=== PATIENT | male | born 1940 | race Two or more races ===

== ENCOUNTER 2016-06-22 16:20 | Emergency (ER) | payer MEDICARE, OTHER ==
[~2016-06-22] VITALS: Wt 87.0 kg
[~2016-06-22 16:20] MED LIST: AZIT250T94 PO; BECL8.7A5 INH; BEN25 PO; CETI10CA PO; CIPR500T4 PO; DICL50TA11 PO; ERGO500014 PO; FLUT9.9S NASAL; IBUP-1542 PO; LEVO500T72 PO; METF-382 PO; OMEP20CA9 PO; ONDA4TAB8 PO; PRAM0.1224 PO; PRED20TA PO; RTPRO NEB; SIMV40TA2 PO; SODI44SP11 NASAL; UDROBAC PO; UDROBDM PO
[2016-06-22 18:30] LABS: URINE BLOOD (Dip) POC Negative (NEGATIVE)
[2016-06-22] MEDS ORDERED: ACETAMINOPHEN 325 MG TAB PO ONE (18:30)
--- NOTE | 2016-06-22 18:55 | RADRPT ---
PROCEDURE: XR Lumbar Spine. CLINICAL INDICATION: pain TECHNIQUE: 3 views of the lumbar spine were obtained. COMPARISON: No prior studies are available for comparison. FINDINGS: Alignment anatomic. There are mild degenerative changes of the lumbar spine with small osteophytes and minor endplate irregularities throughout. Slight L4-5 and L5-S1 disk space narrowing is seen. No definite fracture. No definite lytic or blastic lesion. IMPRESSION: Mild degenerative change. If disk pathology is suspected clinically, MRI could be considered. RPTAT: [facility] Cassie Lassiter Physician Date Time Electronically viewed and signed by Cassie Lassiter Physician on 06/22/2016 18:55 LE/
[2016-06-22] MEDS ORDERED: ACET-141 PO (19:24)
[2016-06-22] MEDS ORDERED: TRAM-40 PO (19:25)
--- NOTE | 2016-06-22 19:28 | ERD ---
ER Documentation Chief Complaint Date/Time DATE: 06/22/16 TIME: 19:26 Chief Complaint LOW BACK PAIN FOR 2 WKS. NO TRAUMA. NO NEURO MOTOR DEFICIT HPI 75-year-old male presents with low back pain intermittently for last 2 weeks. Started getting out of bed. He denies any fall, weakness, bowel or bladder incontinence, fevers, cough or shortness of breath. Denies any urinary complaints. Pain is in the bilateral hip or buttock area. ROS All systems reviewed and are negative except as per history of present illness. Medications Home Meds Active Scripts Tramadol Hcl* (Ultram*) 50 Mg Tablet, 50 MG PO Q6H Y for PAIN, #15 TAB Prov:SHANI FRANKLIN MD 06/22/16 Acetaminophen* (Acetaminophen*) 500 MG Extra Strength Tablet, 500 MG PO Q4H Y for PAIN AND OR ELEVATED TEMP, #20 TAB Prov:SHANI FRANKLIN MD 06/22/16 Ciprofloxacin Hcl* (Ciprofloxacin Hcl*) 500 Mg Tablet, 500 MG PO BID for 3 Days , TAB Prov:TINY WOLFE MD 11/23/15 Ondansetron Hcl* (Zofran*) 4 Mg Tablet, 4 MG PO Q6H for NAUSEA AND/OR VOMITING, #10 TAB Prov:TINY WOLFE MD 11/23/15 Guaifenesin-Codeine Phosphate* (Robitussin* AC) 5 Ml Syrup, 5 ML PO Q6H Y for COUGH for 6 Days, #120 ML 0 Refills Prov:TASIA PATEL PA-C 11/14/15 Sodium Chloride (Saline Nasal [place]) 45 Ml [place], 2 SPRAYS NASAL Q2H Y for NASAL CONGESTION, #1 BOTTLE Prov:ADAN GUZMAN NP 10/10/15 Fluticasone Propionate (Flonase Allergy Relief) 9.9 Ml [place].susp, 1 SPRAY NASAL DAILY, #1 BOTTLE TO EACH NOSTRIL Prov:ADAN GUZMAN NP 10/10/15 Ibuprofen* (Motrin*) 600 Mg Tab, 600 MG PO Q6H Y for PAIN AND OR ELEVATED TEMP, #30 TAB Prov:ADAN GUZMAN NP 10/10/15 Prednisone* (Prednisone*) 20 Mg Tab, 40 MG PO DAILY for 4 Days, TAB Prov:LAURA GOODMAN PA-C 09/29/15 Cetirizine Hcl* (Zyrtec*) 10 Mg Capsule, 10 MG PO DAILY, #10 TAB.CHEW Prov:LAURA GOODMAN PA-C 09/29/15 Diphenhydramine Hcl* (Benadryl*) 25 Mg Cap, 25 MG PO BID, #14 CAP Prov:LAURA GOODMAN PA-C 09/29/15 Guaifenesin-Dextromethorphan* (Robitussin* DM) 100MG/10MG/5ML Syrup, 10 ML PO Q4H Y for COUGH for 4 Days, ML Prov:SONNY HUBER DECK SCALER 09/14/15 Azithromycin* (Zithromax*) 250 Mg Tablet, 250 MG PO .ZPACK DIRECTED, #5 TAB TAKE 500 MG (2 TABS) THE FIRST DAY THEN 250 MG (1 TAB) DAYS 2-5 Prov:SONNY HUBER NP 09/14/15 Guaifenesin-Codeine Phosphate* (Robitussin* AC) 5 Ml Syrup, 5 ML PO Q6H Y for COUGH, #4 OZ Prov:ANTOINE CROCKETT DO 11/07/14 Prednisone* (Prednisone*) 20 Mg Tab, 40 MG PO DAILY for 4 Days, TAB Prov:IVAN NG MD 10/20/14 Levofloxacin* (Levaquin*) 500 Mg Tablet, 7 MG PO DAILY for 7 Days, TAB Prov:IVAN NG MD 10/20/14 Albuterol Sulfate* (Proventil* Neb) 0.083% Neb, 2.5 MG NEB Q4 Y for SHORTNESS OF BREATH, #30 EA Prov:IVAN NG MD 10/20/14 Reported Medications Simvastatin* (Zocor*) 40 Mg Tablet, 40 MG PO HS, TAB 04/17/14 Ergocalciferol* (Drisdol* (Vitamin D2)) 50,000 Unit Capsule, 40799 UNITS PO EVERY 30 DAYS, CAP 04/17/14 Omeprazole* (Prilosec*) 20 Mg Capsule.dr, 20 MG PO DAILY, CAP 04/17/14 Beclomethasone Dip* (Qvar 80*) 7.3 Gm Inha, 2 PUFF INH BID, INH 04/17/14 Diclofenac Sodium* (Diclofenac Sodium*) 50 Mg Tablet.dr, 50 MG PO BID, TAB 04/17/14 Pramipexole* (Mirapex*) 0.125 Mg Tablet, 0.125 MG PO QHS, TAB 04/17/14 Metformin Hcl* (Metformin Hcl*) 500 Mg Tablet, 500 MG PO BID, TAB 04/17/14 Allergies Allergies: Coded Allergies: No Known Allergy (Verified , 06/22/16) PMhx/Soc History of Surgery: No Anesthesia Reaction: No Hx Neurological Disorder: No Hx Respiratory Disorders: Yes (ASTHMA;) Hx Cardiac Disorders: Yes (HTN, HYPERLIPIDEMIA) Hx Psychiatric Problems: No Hx Miscellaneous Medical Probl: Yes (DM, GERD) Hx Alcohol Use: No Hx Substance Use: No Hx Tobacco Use: No Smoking Status: Never smoker Physical Exam Vitals Vital Signs Date Time Temp Pulse Resp B/P Pulse Ox O2 Delivery O2 Flow Rate FiO2 06/22/16 16:37 98.2 70 21 156/70 98 Physical Exam Const: [] Alert, [id number]. Head: Atraumatic Eyes: Normal Conjunctiva ENT: Normal External Ears, Nose and Mouth. Neck: Full range of motion..~ No meningismus. Resp: Clear to auscultation bilaterally Cardio: Regular rate and rhythm, no murmurs Abd: Soft, non tender, non distended. Normal bowel sounds Skin: No petechiae or rashes Back: No midline or flank tenderness tenderness in the bilateral L4-5 paraspinous muscles with no midline tenderness or deformities appreciated. Ext: No cyanosis, or edema Neur: Awake and alert. Patient has normal gait without deficits or weakness. Psych: Normal Mood and Affect Results 24 hrs Laboratory Tests Test 06/22/16 18:32 Bedside Urine Blood Negative Bedside Urine Glucose (UA) Negative Bedside Urine Ketones (LAB) Negative Bedside Urine Leukocyte Esterase (L Negative Bedside Urine Nitrite (LAB) Negative Bedside Urine Protein (LAB) Negative Bedside Urine pH (LAB) 6.0 Current Medications Medications (Trade) Dose Ordered Sig/Rachael Route PRN Reason Start Time Stop Time Status Last Admin Dose Admin Acetaminophen (Tylenol Tab) 650 mg ONCE ONCE PO 06/22/16 18:30 06/22/16 18:31 DC 06/22/16 18:19 Procedures/MDM X-ray LS-Spine 3V Interpreted by me: Bones: No fracture, or lytic lesions Joints: No dislocation Foreign body: None. Impression-no acute findings of lumbar spine x-ray\ Urine is negative for blood, leukocytes, nitrates, Patient was given Tylenol by mouth. Patient was stable throughout the ED course. Patient presents with low back pain for 2 weeks, likely musculoskeletal. Signs and symptoms not consistent with epidural abscess, bacterial infection, UTI or genitourinary etiology. There is no signs or symptoms of neurologic deficit or other significant emergent causes of back pain. Patient will be treated with Tylenol and tramadol and further observation at home. The patient was stable with no new complaints during the ER course. Clinically, there is no current evidence to suggest meningitis, sepsis, acute abdomen, pneumonia, acute coronary syndrome, pulmonary embolism, or any other emergent condition appearing to require further evaluation or hospitalization. The patient should certainly return for any new or worsening symptoms per the aftercare instructions. They should otherwise follow-up with her primary care doctor for reevaluation this week. Departure Diagnosis: Primary Impression: Back pain Back pain location: back pain in unspecified location Chronicity: acute Back pain laterality: bilateral Qualified Code: M54.9 - Acute bilateral back pain, unspecified back location Condition: Stable Patient Instructions: Back Pain (Acute Or Chronic) Additional Instructions: Examinations normal today. Likely musculoskeletal back pain. See primary doctor for follow-up or for new or worsening symptoms. SHANI FRANKLIN MD Jun 22, 2016 19:28
[2016-06-22 19:37] VITALS: BP 139/80; PULSE 67; RESP 21; TEMP 98.2
== END 2016-06-22 19:37 | disposition home or self-care (01) ==
LOC: FTE 16:20
DX: M54.5 Low back pain (principal); J45.909 Unspecified asthma, uncomplicated; I10 Essential (primary) hypertension; E11.9 Type 2 diabetes mellitus without complications; Z79.84 Long term (current) use of oral hypoglycemic drugs
CPT/HCPCS: 72100; 81003

== ENCOUNTER 2016-09-15 14:56 | Emergency (ER) | payer MEDICARE, OTHER ==
[~2016-09-15] VITALS: Wt 88.0 kg
[~2016-09-15 14:56] MED LIST changes: +ACET-141 PO; -METF-382 PO; +METF500T4 PO; +TRAM-40 PO
--- NOTE | 2016-09-15 17:01 | ERA ---
ER Documentation Chief Complaint Date/Time DATE: 09/15/16 TIME: 17:01 Chief Complaint LEFT ARM PAIN FOR THE PAST 5 DAYS. NO TRAUMA. NO SOB. HPI The patient is a 76-year-old male, being to the ER because of intermittent left arm pain for 5 days. There is no aggravating or relieving factor. He has not taken any medication for pain; he denies similar symptoms previously, denies trauma, denies headache, neck pain, chest pain, abdominal pain, vomiting, dysuria, diarrhea. He does not smoke nor drink Past medical history: Chronic low back pain, diabetes mellitus, dyslipidemia Past surgical history: None ROS All systems reviewed and are negative except as per history of present illness. Medications Home Meds Active Scripts Dextromethorphan Hb-Promethazine Hcl* (Promethazine DM* Syrup) 473 Ml Syrup, 10 ML PO Q6 Y for COUGH, #120 ML Prov:FAUSTINO RUBY MD 09/15/16 Ibuprofen* (Motrin*) 600 Mg Tab, 600 MG PO Q6H Y for PAIN AND OR ELEVATED TEMP, #20 TAB Prov:FAUSTINO RUBY MD 09/15/16 Reported Medications Pramipexole* (Pramipexole*) 0.25 Mg Tablet, 0.25 MG PO HS, TAB 09/15/16 Aspirin* (Aspirin* EC) 81 Mg Tablet.dr, 81 MG PO DAILY, TAB 09/15/16 Omeprazole* (Omeprazole*) 20 Mg Capsule.dr, 20 MG PO DAILY, #30 CAP 09/15/16 Atorvastatin* (Atorvastatin*) 40 Mg Tablet, 40 MG PO QHS, #30 TAB 09/15/16 Metformin Hcl* (Metformin Hcl*) 1,000 Mg Tablet, 1000 MG PO WITH BREAKFAST DINNE , #60 TAB 09/15/16 Discontinued Reported Medications Simvastatin* (Zocor*) 40 Mg Tablet, 40 MG PO HS, TAB 04/17/14 Ergocalciferol* (Drisdol* (Vitamin D2)) 50,000 Unit Capsule, 75581 UNITS PO EVERY 30 DAYS, CAP 04/17/14 Omeprazole* (Prilosec*) 20 Mg Capsule.dr, 20 MG PO DAILY, CAP 04/17/14 Beclomethasone Dip* (Qvar 80*) 7.3 Gm Inha, 2 PUFF INH BID, INH 04/17/14 Diclofenac Sodium* (Diclofenac Sodium*) 50 Mg Tablet.dr, 50 MG PO BID, TAB 04/17/14 Pramipexole* (Mirapex*) 0.125 Mg Tablet, 0.125 MG PO QHS, TAB 04/17/14 Metformin Hcl* (Metformin Hcl*) 500 Mg Tablet, 500 MG PO BID, TAB 04/17/14 Discontinued Scripts Tramadol Hcl* (Ultram*) 50 Mg Tablet, 50 MG PO Q6H Y for PAIN, #15 TAB Prov:SHANI FRANKLIN MD 06/22/16 Acetaminophen* (Acetaminophen*) 500 MG Extra Strength Tablet, 500 MG PO Q4H Y for PAIN AND OR ELEVATED TEMP, #20 TAB Prov:SHANI FRANKLIN MD 06/22/16 Ciprofloxacin Hcl* (Ciprofloxacin Hcl*) 500 Mg Tablet, 500 MG PO BID for 3 Days , TAB Prov:TINY WOLFE MD 11/23/15 Ondansetron Hcl* (Zofran*) 4 Mg Tablet, 4 MG PO Q6H for NAUSEA AND/OR VOMITING, #10 TAB Prov:TINY WOLFE MD 11/23/15 Guaifenesin-Codeine Phosphate* (Robitussin* AC) 5 Ml Syrup, 5 ML PO Q6H Y for COUGH for 6 Days, #120 ML 0 Refills Prov:TASIA PATEL PA-C 11/14/15 Sodium Chloride (Saline Nasal [place]) 45 Ml [place], 2 SPRAYS NASAL Q2H Y for NASAL CONGESTION, #1 BOTTLE Prov:ADAN GUZMAN NP 10/10/15 Fluticasone Propionate (Flonase Allergy Relief) 9.9 Ml [place].susp, 1 SPRAY NASAL DAILY, #1 BOTTLE TO EACH NOSTRIL Prov:ADAN GUZMAN NP 10/10/15 Ibuprofen* (Motrin*) 600 Mg Tab, 600 MG PO Q6H Y for PAIN AND OR ELEVATED TEMP, #30 TAB Prov:ADAN GUZMAN NP 10/10/15 Prednisone* (Prednisone*) 20 Mg Tab, 40 MG PO DAILY for 4 Days, TAB Prov:LAURA GOODMAN PA-C 09/29/15 Cetirizine Hcl* (Zyrtec*) 10 Mg Capsule, 10 MG PO DAILY, #10 TAB.CHEW Prov:LAURA GOODMAN PA-C 09/29/15 Diphenhydramine Hcl* (Benadryl*) 25 Mg Cap, 25 MG PO BID, #14 CAP Prov:LAURA GOODMAN PA-C 09/29/15 Guaifenesin-Dextromethorphan* (Robitussin* DM) 100MG/10MG/5ML Syrup, 10 ML PO Q4H Y for COUGH for 4 Days, ML Prov:SONNY HUBER NP 09/14/15 Azithromycin* (Zithromax*) 250 Mg Tablet, 250 MG PO .ZPACK DIRECTED, #5 TAB TAKE 500 MG (2 TABS) THE FIRST DAY THEN 250 MG (1 TAB) DAYS 2-5 Prov:SONNY HUBER NP 09/14/15 Guaifenesin-Codeine Phosphate* (Robitussin* AC) 5 Ml Syrup, 5 ML PO Q6H Y for COUGH, #4 OZ Prov:ANTOINE CROCKETT DO 11/07/14 Prednisone* (Prednisone*) 20 Mg Tab, 40 MG PO DAILY for 4 Days, TAB Prov:IVAN NG MD 10/20/14 Levofloxacin* (Levaquin*) 500 Mg Tablet, 7 MG PO DAILY for 7 Days, TAB Prov:IVAN NG MD 10/20/14 Albuterol Sulfate* (Proventil* Neb) 0.083% Neb, 2.5 MG NEB Q4 Y for SHORTNESS OF BREATH, #30 EA Prov:IVAN NG MD 10/20/14 Allergies Allergies: Coded Allergies: No Known Allergy (Verified , 09/15/16) PMhx/Soc History of Surgery: No Anesthesia Reaction: No Hx Neurological Disorder: No Hx Respiratory Disorders: Yes (ASTHMA;) Hx Cardiac Disorders: Yes (HTN, HYPERLIPIDEMIA) Hx Psychiatric Problems: No Hx Miscellaneous Medical Probl: Yes (DM, GERD) Hx Alcohol Use: No Hx Substance Use: No Hx Tobacco Use: No Physical Exam Vitals Vital Signs Date Time Temp Pulse Resp B/P Pulse Ox O2 Delivery O2 Flow Rate FiO2 09/15/16 17:30 98.6 63 16 118/74 97 Room Air 09/15/16 14:59 97.4 55 20 149/70 96 Physical Exam Const: No acute distress. Head: Atraumatic. Eyes: Normal Conjunctiva. ENT: Normal External Ears, Nose and Mouth. Neck: Full range of motion. No meningismus. Resp: Clear to auscultation bilaterally. Cardio: Regular rate and rhythm, no murmurs. Abd: Soft, non distended, normal bowel sounds, non tender. Skin: No petechiae or rashes. Back: No midline or flank tenderness. Ext: No cyanosis, or edema. Neur: Awake and alert. No focal deficit Psych: Normal Mood and Affect. Procedures/MDM EKG: Read by emergency physician Rate/Rhythm: Normal Sinus Rhythm 64 beats/min QRS, ST, T-waves: No ST elevation, no T inversion, LVH, inferior Q waves Impression: Abnormal EKG MEDICAL MAKING DECISION: The patient is a 76-year-old male, presenting with acute left arm pain of unclear etiology, most likely musculoskeletal in origin. The differential diagnoses considered include but are not limited to fracture , contusion, sprain, internal derangement, cellulitis Departure Diagnosis: Primary Impression: Pain of left arm Condition: Good Comments He was discharged with Motrin. He requested cough medicine I discussed the findings with the patient. I advised the patient to follow-up with the primary physician in about 1-2 days, sooner if needed and return if any concern. The patient's blood pressure was elevated (>120/80) but appears stable without evidence of hypertension emergency or urgency. The patient was counseled about the risks of hypertension and urged to pursue outpatient monitoring and therapy within a week with their primary care physician. FAUSTINO RUBY MD September 15, 2016 17:01
[2016-09-15 17:30] VITALS: BP 118/74; PULSE 63; RESP 16; TEMP 98.6
[2016-09-15] MEDS ORDERED: IBUP-1542 PO (17:31)
[2016-09-15] MEDS ORDERED: D-ME473S2 PO (17:32)
[2016-09-15] MEDS ORDERED: METF1000 PO (17:35)
[2016-09-15] MEDS ORDERED: ASPI-664 PO (17:36)
[2016-09-15] MEDS ORDERED: ATOR40TA68 PO (17:36)
[2016-09-15] MEDS ORDERED: OMEP20CA16 PO (17:36)
[2016-09-15] MEDS ORDERED: PRAM0.25 PO (17:37)
== END 2016-09-15 17:56 | disposition home or self-care (01) ==
LOC: E/R 14:56
DX: M79.602 Pain in left arm (principal); E11.9 Type 2 diabetes mellitus without complications; J45.909 Unspecified asthma, uncomplicated; I10 Essential (primary) hypertension; Z79.82 Long term (current) use of aspirin; Z79.84 Long term (current) use of oral hypoglycemic drugs
CPT/HCPCS: 93005

== ENCOUNTER 2016-11-13 19:25 | Emergency (ER) | payer MEDICARE, OTHER ==
[~2016-11-13] VITALS: Ht 175.3 cm; Wt 84.0 kg
[~2016-11-13 19:25] MED LIST changes: -ACET-141 PO; +ASPI-664 PO; +ATOR40TA68 PO; -AZIT250T94 PO; -BECL8.7A5 INH; -BEN25 PO; -CETI10CA PO; -CIPR500T4 PO; +D-ME473S2 PO; -DICL50TA11 PO; -ERGO500014 PO; -FLUT9.9S NASAL; -LEVO500T72 PO; +METF1000 PO; -METF500T4 PO; +OMEP20CA16 PO; -OMEP20CA9 PO; -ONDA4TAB8 PO; -PRAM0.1224 PO; +PRAM0.25 PO; -PRED20TA PO; -RTPRO NEB; -SIMV40TA2 PO; -SODI44SP11 NASAL; -TRAM-40 PO; -UDROBAC PO; -UDROBDM PO
[2016-11-13 19:33] VITALS: Ht 175.3 cm; Wt 84.0 kg
[2016-11-13] MEDS ORDERED: DIPHTH/TET/ACEL PERTUSS (ADULT) 0.5 ML VIAL IM* ONE (21:00)
--- NOTE | 2016-11-13 21:12 | ERD ---
ER Documentation Chief Complaint Date/Time DATE: 11/13/16 TIME: 21:09 Chief Complaint fall, right forehead bump, right side chest pain +abrasions HPI 76-year-old male presents to emergency department for complaints of right rib, chest pain, bruising in the right forehead, abrasions and lower extremities in the right elbow after falling today. Patient tripped and fell, landed on the right rib right chest area, and the right forehead. Patient complains of pain throbbing pain 6/10 scale, worse upon touching affected areas. Patient denies any deformity. Patient denies any shortness of breath. Patient denies any dizziness. Patient did not lose consciousness after the injury, did not have any changes in balance or memory, did not have any vision changes. Patient is currently on aspirin. Patient did not take any medication stop and symptoms. ROS All systems reviewed and are negative except as per history of present illness. Medications Home Meds Active Scripts Hydrocodone/Acetaminophen ([place] 5-325 Tablet) 1 Each Tablet, 1 TAB PO Q6H Y for SEVERE PAIN LEVEL 7-10, #20 TAB Prov:JOSÉ MIGUEL NELSON NP 11/13/16 Acetaminophen* (Tylophen*) 500 Mg Capsule, 1 CAP PO Q6H Y for PAIN AND OR ELEVATED TEMP, #20 CAP Prov:JOSÉ MIGUEL NELSON NP 11/13/16 Dextromethorphan Hb-Promethazine Hcl* (Promethazine DM* Syrup) 473 Ml Syrup, 10 ML PO Q6 Y for COUGH, #120 ML Prov:FAUSTINO RUBY MD 09/15/16 Ibuprofen* (Motrin*) 600 Mg Tab, 600 MG PO Q6H Y for PAIN AND OR ELEVATED TEMP, #20 TAB Prov:FAUSTINO RUBY MD 09/15/16 Reported Medications Pramipexole* (Pramipexole*) 0.25 Mg Tablet, 0.25 MG PO HS, TAB 09/15/16 Aspirin* (Aspirin* EC) 81 Mg Tablet.dr, 81 MG PO DAILY, TAB 09/15/16 Omeprazole* (Omeprazole*) 20 Mg Capsule.dr, 20 MG PO DAILY, #30 CAP 09/15/16 Atorvastatin* (Atorvastatin*) 40 Mg Tablet, 40 MG PO QHS, #30 TAB 09/15/16 Metformin Hcl* (Metformin Hcl*) 1,000 Mg Tablet, 1000 MG PO WITH BREAKFAST DINNE , #60 TAB 09/15/16 Allergies Allergies: Coded Allergies: No Known Allergy (Verified , 11/13/16) PMhx/Soc History of Surgery: No Anesthesia Reaction: No Hx Neurological Disorder: No Hx Respiratory Disorders: Yes (ASTHMA;) Hx Cardiac Disorders: Yes (HTN, HYPERLIPIDEMIA) Hx Psychiatric Problems: No Hx Miscellaneous Medical Probl: Yes (DM, GERD) Hx Alcohol Use: No Hx Substance Use: No Hx Tobacco Use: No Smoking Status: Never smoker FmHx Family History: No coronary disease, No diabetes, No other Physical Exam Vitals Vital Signs Date Time Temp Pulse Resp B/P Pulse Ox O2 Delivery O2 Flow Rate FiO2 11/13/16 19:33 98.4 62 18 146/67 100 Physical Exam GENERAL: The patient is well developed and appropriate for usual state of health, in no apparent distress. CHEST: Clear to auscultation bilaterally. There are no rales, wheezes or rhonchi. Denies some palpation in the right chest wall, anterior second third and fourth anterior rib. HEART: Regular rate and rhythm. No murmurs, clicks, rubs or gallops. No S3 or S4. ABDOMEN: Soft, nontender and nondistended. Good bowel sounds. No rebound or guarding. No gross peritonitis. No gross organomegaly or masses. No Estes sign or McBurney point tenderness. BACK: No midline or flank tenderness. EXTREMITIES: Able to do full range of motion of the right elbow and the terms of bilateral foot without any restriction, abrasions were noted. No ecchymosis noted. Equal pulses bilaterally. Full range of motion. Grossly neurovascularly intact. NEURO: Alert and oriented. Cranial nerves 2-12 intact. Motor strength in all 4 extremities with 5/5 strength. Sensation grossly intact. Normal speech and gait. Negative Romberg sign. Negative pronator drift. SKIN: The 3 cm right forehead hematoma with tenderness on palpation. Noted abrasions and lower extremities right elbow, no joint involvement. There is no apparent rash or petechia. The skin is warm and dry. HEMATOLOGIC AND LYMPHATIC: There is no evidence of excessive bruising or lymphedema. No gross cervical, axillary, or inguinal lymphadenopathy. Results 24 hrs Current Medications Medications (Trade) Dose Ordered Sig/Rachael Route PRN Reason Start Time Stop Time Status Last Admin Dose Admin Diphtheria/ Tetanus/Acell Pertussis (Adacel) 0.5 ml ONCE ONCE IM* 11/13/16 21:00 11/13/16 21:01 DC 11/13/16 21:04 Tdap was given to prevent tetanus. Patient tolerated medication well. EKG was done, read by me and is and his bradycardia` at a rate of 50 with first- degree AV block, normal axis, there is no ST changes or changes in the EKG that indicates any cardiac emergencies at this time. Patient's EKG was also reviewed by Dr Shepherd. Impression: no acute findings on EKG PROCEDURE: XR Chest. CLINICAL INDICATION: Right rib pain. TECHNIQUE: PA and Lateral views of the chest were obtained. COMPARISON: Chest dated 09/14/2015. FINDINGS: Cardiomegaly with atherosclerotic calcifications in the thoracic aorta. Mild atelectasis at the left lung base. The lungs otherwise clear. No signs of pleural fluid or pneumothorax are seen. The osseous structures and soft tissues are unremarkable. IMPRESSION: Mild atelectasis at the left lung base. RPTAT: [facility] Physician Manpreet Date Time Electronically viewed and signed by Physician Manpreet on 11/13/2016 22:22 RS/ CC: JOSÉ MIGUEL NELSON NP PROCEDURE: X-ray right ribs. CLINICAL INDICATION: Fall with pain at the lower lateral right ribs, with reference marker in place. TECHNIQUE: 2 views of the right ribs. COMPARISON: Plain film chest dated 09/14/2015. FINDINGS: No acute fracture or dislocation. Cardiomegaly and atherosclerotic calcifications in the thoracic aorta. No evident pneumothorax. IMPRESSION: No acute fracture. RPTAT: [facility] Physician Manpreet Date Time Electronically viewed and signed by Physician Manpreet on 11/13/2016 22:20 RS/ CC: JOSÉ MIGUEL NELSON SNELLER HAND PROCEDURE: CT Brain without contrast. CLINICAL INDICATION: Headaches TECHNIQUE: A CT of the brain was performed on a GE LightSpeed 64-slice CT scanner utilizing axial imaging from the skull base through the vertex without IV contrast. Multiplanar reformatted images were made. Images were reviewed on a PACS workstation. The CTDIvol is 42.30 mGy and the DLP is 720.23 mGycm. One of the following 3 dose reduction techniques were used: Automated exposure control; adjustment of the mA and/or kV according to patient size; or use of iterative reconstruction technique. COMPARISON: CT brain 10/20/2014 FINDINGS: There is no intracranial hemorrhage, mass effect, or midline shift. No extra- axial fluid collection is seen. The ventricles and sulci are age appropriate. Mild diffuse volume loss is present. Subtle decreased attenuation is present in the bilateral subcortical white matter, centrum semiovale and periventricular white matter compatible with mild chronic microvascular ischemic disease. Mild vascular calcifications are present of the intracranial internal carotid arteries. Empty sella is present. The visualized scalp and calvarium are normal. The bilateral orbits are remarkable for prior lens replacement. The bilateral paranasal sinuses, mastoid air cells and middle ear cavities are clear. IMPRESSION: 1. No evidence of acute intracranial hemorrhage, infarcts, or acute intracranial pathology. 2. Mild chronic microvascular ischemic disease and diffuse volume loss. 3. Empty sella 4. Mild atherosclerotic vascular disease RPTAT: [facility] .Lakesha Sargent MD, MD Date Time Electronically viewed and signed by .Lakesha Sargent MD, on 11/13/2016 22: 05 .C/ CC: JOSÉ MIGUEL NELSON NP Procedures/MDM Medical Decision Making: Patient's right-sided chest pain most like it consistent with a chest wall contusion. No symptoms of any fluid overload, no symptoms of acute exacerbation of his CHF. There is low suspicion for cardiopulmonary emergencies at this time. Chest X-ray does not show cardiopulmonary emergencies at this time. There is low suspicion for aortic aneurysm, myocardial infarction, pneumothorax, pleural effusion, pulmonary embolism, or any other cardiopulmonary emergencies at this time. No rib fractures noted. Patient's right forehead hematoma that is consistent with a head contusion. No loss of consciousness. There is low suspicion for neurological emergencies at this time since patients neurologic exam is normal. Patient did not have any altered level consciousness, vomiting, changes in balance or memory after incident. Patients CT scan of the head does not show any neurological emergencies at this time. I Discussed this case with my attending physician, alexia Carrillo plan at this time, outpatient management is appropriate at this time. Patient was given for Tylenol for mild to moderate pain, [place] for severe pain, is advised to follow-up with primary care doctor in 2-3 days for reevaluation of symptoms. Patient was advised to return to emergency department for any worsening symptoms Dispostion: Home. Stable Departure Diagnosis: Primary Impression: Chest wall contusion Encounter type: initial encounter Laterality: right Qualified Code: S20.211A - Chest wall contusion, right, initial encounter Additional Impressions: Head contusion Encounter type: initial encounter Contusion of head detail: unspecified part of head Qualified Code: S00.93XA - Contusion of head, unspecified part of head, initial encounter Abrasions of multiple sites Condition: Stable Patient Instructions: Abrasion, Chest Wall Contusion, Scalp Contusion, No Wake Up JOSÉ MIGUEL NELSON NP Nov 13, 2016 21:12
--- NOTE | 2016-11-13 22:06 | RADRPT ---
PROCEDURE: CT Brain without contrast. CLINICAL INDICATION: Headaches TECHNIQUE: A CT of the brain was performed on a [employer] 64-slice CT scanner utilizing axial imaging from the skull base through the vertex without IV contrast. Multiplanar reformatted images were made. Images were reviewed on a PACS workstation. The CTDIvol is 42.30 mGy and the DLP is 720 .23 mGycm. One of the following 3 dose reduction techniques were used: Automated exposure control; adjustment of the mA and/or kV according to patient size; or use of iterative reconstruction technique. COMPARISON: CT brain 10/20/2014 FINDINGS: There is no intracranial hemorrhage, mass effect, or midline shift. No extra-axial fluid collection is seen. The ventricles and sulci are age appropriate. Mild diffuse volume loss is present. Subtl e decreased attenuation is present in the bilateral subcortical white matter, centrum semiovale and periventricular white matter compatible with mild chronic microvascular ischemic disease. Mild vasc ular calcifications are present of the intracranial internal carotid arteries. Empty sella is presen t. The visualized scalp and calvarium are normal. The bilateral orbits are remarkable for prior lens r eplacement. The bilateral paranasal sinuses, mastoid air cells and middle ear cavities are clear. IMPRESSION: 1. No evidence of acute intracranial hemorrhage, infarcts, or acute intracranial pathology. 2. Mild chronic microvascular ischemic disease and diffuse volume loss. 3. Empty sella 4. Mild atherosclerotic vascular disease RPTAT: HDC .Lakesha Sargent MD, Date Time Electronically viewed and signed by .Lakesha Sargent MD, MD on 11/13/2016 22:05 .C/
--- NOTE | 2016-11-13 22:20 | RADRPT ---
PROCEDURE: X-ray right ribs. CLINICAL INDICATION: Fall with pain at the lower lateral right ribs, with reference marker in plac e. TECHNIQUE: 2 views of the right ribs. COMPARISON: Plain film chest dated 09/14/2015. FINDINGS: No acute fracture or dislocation. Cardiomegaly and atherosclerotic calcifications in the thoracic a shawn. No evident pneumothorax. IMPRESSION: No acute fracture. RPTAT: [facility] Physician Manpreet Date Time Electronically viewed and signed by Nuria Villatoro Physician on 11/13/2016 22:20 RS/
--- NOTE | 2016-11-13 22:23 | RADRPT ---
PROCEDURE: XR Chest. CLINICAL INDICATION: Right rib pain. TECHNIQUE: PA and Lateral views of the chest were obtained. COMPARISON: Chest dated 09/14/2015. FINDINGS: Cardiomegaly with atherosclerotic calcifications in the thoracic aorta. Mild atelectasis at the lef t lung base. The lungs otherwise clear. No signs of pleural fluid or pneumothorax are seen. The oss eous structures and soft tissues are unremarkable. IMPRESSION: Mild atelectasis at the left lung base. RPTAT: [facility] Physician Manpreet Date Time Electronically viewed and signed by Nuria Villatoro Physician on 11/13/2016 22:22 RS/
[2016-11-13] MEDS ORDERED: ACET500C5 PO (22:44)
[2016-11-13] MEDS ORDERED: HYDR-906 PO (22:44)
[2016-11-13 23:42] VITALS: BP 141/65; PULSE 77; RESP 18; TEMP 98.4
== END 2016-11-13 23:43 | disposition home or self-care (01) ==
LOC: FTE 19:25
DX: S20.211A Contusion of right front wall of thorax, initial encounter (principal); S00.93XA Contusion of unspecified part of head, initial encounter; S50.311A Abrasion of right elbow, initial encounter; I10 Essential (primary) hypertension; J45.909 Unspecified asthma, uncomplicated; E11.9 Type 2 diabetes mellitus without complications; W01.0XXA Fall on same level from slipping, tripping and stumbling without subsequent striking against object, initial encounter; Y92.9 Unspecified place or not applicable; Z79.82 Long term (current) use of aspirin; Z79.84 Long term (current) use of oral hypoglycemic drugs; Z23 Encounter for immunization
CPT/HCPCS: 70450; 71020; 71100; 90471; 90715; 93005

== ENCOUNTER 2016-12-07 15:51 | Emergency (ER) | payer MEDICARE, OTHER ==
[~2016-12-07] VITALS: Ht 172.7 cm; Wt 85.0 kg
[~2016-12-07 15:51] MED LIST changes: +ACET500C5 PO; +HYDR-906 PO
[2016-12-07 15:54] VITALS: Ht 172.7 cm; Wt 85.0 kg
--- NOTE | 2016-12-07 18:26 | RADRPT ---
PROCEDURE: XR Chest. CLINICAL INDICATION: Shortness of breath. Cough. TECHNIQUE: Chest x-ray, single view. COMPARISON: 11/13/2016. FINDINGS: The cardiac silhouette is slightly magnified. Aortic arch atherosclerotic calcification is present. Low lung volumes are observed. There is no focal pulmonary parenchymal opacification. Skeletal s tructures and upper abdomen are unremarkable. IMPRESSION: No radiographic evidence of acute cardiopulmonary pathology. RPTAT: HLST .Ginette Cardozo MD, MD Date Time Electronically viewed and signed by .Ginette Cardozo MD, on 12/07/2016 18:25 .T/
[2016-12-07] MEDS ORDERED: FLUT9.9S NASAL (18:31)
[2016-12-07] MEDS ORDERED: LORA-186 PO (18:31)
[2016-12-07] MEDS ORDERED: IBUP-1542 PO (18:31)
[2016-12-07] MEDS ORDERED: PHEN28OI6 PR (18:31)
[2016-12-07 18:56] VITALS: BP 130/79; PULSE 75; RESP 18; TEMP 98.6
--- NOTE | 2016-12-07 19:05 | ERD ---
ER Documentation Chief Complaint Date/Time DATE: 12/07/16 TIME: 18:49 Chief Complaint Pt with cough X 1 week and dysuria X 3 weeks. HPI This is a 76-year-old male history of diabetes type 2 and hypertension. Presenting to the emergency department complaining of cough, nasal congestion for the past week. Patient states that he has increased cough at nighttime. He denies any chest pain, shortness of breath. He denies fever. He denies any history of bronchitis or asthma. Patient also complains of burning sensation and itching after he wipes when he has a bowel movement. He states that he has been using an anal cream that he has received from his primary care physician which has not helped him in this past week. He denies any constipation, rectal bleeding ROS All systems reviewed and are negative except as per history of present illness. Medications Home Meds Active Scripts Ibuprofen* (Ibuprofen*) 600 Mg Tablet, 600 MG PO Q6, #30 TAB Prov:UNIQUE GARCIA PA-C 12/07/16 Loratadine* (Claritin*) 10 Mg Tablet, 10 MG PO DAILY, #30 TAB Prov:UNIQUE GARCIA PA-C 12/07/16 Fluticasone Propionate (Flonase Allergy Relief) 9.9 Ml [place].susp, 1 SPRAY NASAL BID, #1 BOTTLE TO EACH NOSTRIL Prov:UNIQUE GARCIA PA-C 12/07/16 Phenyleph/Mineral Oil/Petrolat* (Preparation H* Oint) 28 Gm Oint.appl, 1 APPLIC [place] BID, #1 TUB Prov:UNIQUE GARCIA PA-C 12/07/16 Hydrocodone/Acetaminophen ([place] 5-325 Tablet) 1 Each Tablet, 1 TAB PO Q6H Y for SEVERE PAIN LEVEL 7-10, #20 TAB Prov:JOSÉ MIGUEL NELSON NP 11/13/16 Acetaminophen* (Tylophen*) 500 Mg Capsule, 1 CAP PO Q6H Y for PAIN AND OR ELEVATED TEMP, #20 CAP Prov:JOSÉ MIGUEL NELSON NP 11/13/16 Dextromethorphan Hb-Promethazine Hcl* (Promethazine DM* Syrup) 473 Ml Syrup, 10 ML PO Q6 Y for COUGH, #120 ML Prov:RUBY,FAUSTINO M MD 09/15/16 Ibuprofen* (Motrin*) 600 Mg Tab, 600 MG PO Q6H Y for PAIN AND OR ELEVATED TEMP, #20 TAB Prov:FAUSTINO RUBY MD 09/15/16 Reported Medications Pramipexole* (Pramipexole*) 0.25 Mg Tablet, 0.25 MG PO HS, TAB 09/15/16 Aspirin* (Aspirin* EC) 81 Mg Tablet.dr, 81 MG PO DAILY, TAB 09/15/16 Omeprazole* (Omeprazole*) 20 Mg Capsule.dr, 20 MG PO DAILY, #30 CAP 09/15/16 Atorvastatin* (Atorvastatin*) 40 Mg Tablet, 40 MG PO QHS, #30 TAB 09/15/16 Metformin Hcl* (Metformin Hcl*) 1,000 Mg Tablet, 1000 MG PO WITH BREAKFAST DINNE , #60 TAB 09/15/16 Allergies Allergies: Coded Allergies: No Known Allergy (Verified , 11/13/16) PMhx/Soc History of Surgery: No Anesthesia Reaction: No Hx Neurological Disorder: No Hx Respiratory Disorders: Yes (ASTHMA;) Hx Cardiac Disorders: Yes (HTN, HYPERLIPIDEMIA) Hx Psychiatric Problems: No Hx Miscellaneous Medical Probl: Yes (DM, GERD) Hx Alcohol Use: No Hx Substance Use: No Hx Tobacco Use: No Smoking Status: Never smoker Physical Exam Vitals Vital Signs Date Time Temp Pulse Resp B/P Pulse Ox O2 Delivery O2 Flow Rate FiO2 12/07/16 15:54 97.8 68 16 138/62 96 Physical Exam GENERAL: well-developed/well-nourished, in no apparent distress, non-toxic appearing HENT: NC/AT, moist mucous membranes EYES: Conjunctiva normal NECK: Supple, no lymphadenopathy PULM: CTA bilaterally, no rales, rhonchi, or wheezing heard CV: Normal S1S2, RRR, good capillary refill GI: Soft, non-distended, t nontender to palpation Normal bowel sounds, no masses or organomegaly felt on exam No gross peritonitis, no bruits Negative Rovsing, negative [place], negative McBurney's point, Negative CVAT Rectum: ext hemorrhouds BACK: No masses EXT: No clubbing, cyanosis, or edema NEURO: Alert and Orientated SKIN: Intact, normal turgor PSYCH: Normal mood and mentation Procedures/MDM MDM: 76-year-old male presents to the ER with upper respiratory infection, which is most likely viral. My clinical suspicion is low suspicion for pneumonia , strep pharyngitis, or pulmonary emergencies due to physical examination. Patient's lungs were clear on examination. Chest x-ray did not show any evidence of pneumonia, infiltrates, pneumothorax or pleural effusion. On examination, patient had evidence of external hemorrhoids. I have given him a prescription for Preparation H I discussed with him to follow-up with his primary care physician. Discussed sitz bath DISPOSITION: hemodynamically stable for discharge. Prescription for Preparation H, Claritin, Flonase, ibuprofen was given to patient, discussed to return to the ED if not improving as expected or follow-up with a primary care physician. Patient understood and agreed with this plan. Departure Diagnosis: Primary Impression: URI (upper respiratory infection) Additional Impression: Hemorrhoids Condition: Stable Patient Instructions: Treating Hemorrhoids: Self-Care, Treating Hemorrhoids: Removal, Preventing Common Respiratory Infections, Uri, Viral, No Abx (Adult) Additional Instructions: FOLLOW UP WITH YOUR PRIMARY CARE PHYSICIAN TOMORROW.Return to this facility if you are not improving as expected. Take all medicines as directed. Return to this facility if you are not improving as expected. UNIQUE GARCIA PA-C Dec 07, 2016 19:04
== END 2016-12-07 18:58 | disposition home or self-care (01) ==
LOC: FTE 15:51
DX: J06.9 Acute upper respiratory infection, unspecified (principal); K64.9 Unspecified hemorrhoids; J45.909 Unspecified asthma, uncomplicated; I10 Essential (primary) hypertension; E11.9 Type 2 diabetes mellitus without complications; Z79.82 Long term (current) use of aspirin; Z79.84 Long term (current) use of oral hypoglycemic drugs
CPT/HCPCS: 71010

== ENCOUNTER 2017-01-30 11:25 | Emergency (ER) | payer MEDICARE, OTHER ==
[~2017-01-30] VITALS: Ht 172.7 cm; Wt 84.0 kg
[~2017-01-30 11:25] MED LIST changes: +FLUT9.9S NASAL; +LORA-186 PO; +PHEN28OI6 PR
[2017-01-30 11:27] VITALS: Ht 172.7 cm; Wt 84.0 kg
--- NOTE | 2017-01-30 11:41 | ERD ---
ER Documentation Chief Complaint Date/Time DATE: 01/30/17 TIME: 11:38 Chief Complaint COUGH AND BACK PAIN HPI Patient is a 76-year-old with history of hypertension and diabetes male who presents complaining of cough. The cough is dry and it is worse at night. He states that he has been coughing so much that he has began to get back pain. He denies any chest pain or shortness of breath. Denies any nausea vomiting or diarrhea. He took [id number] cough syrup but it did not help. Denies any unplanned weight loss or hemoptysis. Denies any night sweats. ROS All systems reviewed and are negative except as per history of present illness. Medications Home Meds Active Scripts Azithromycin* (Zithromax*) 250 Mg Tablet, 250 MG PO .CANDI DIRECTED, #6 TAB TAKE 500 MG (2 TABS) THE FIRST DAY THEN 250 MG (1 TAB) DAYS 2-5 Prov:LU CHILDS PA-C 01/30/17 Ibuprofen* (Ibuprofen*) 600 Mg Tablet, 600 MG PO Q6, #30 TAB Prov:UNIQUE GARCIA PA-C 12/07/16 Loratadine* (Claritin*) 10 Mg Tablet, 10 MG PO DAILY, #30 TAB Prov:UNIQUE GARCIA PA-C 12/07/16 Fluticasone Propionate (Flonase Allergy Relief) 9.9 Ml [place].susp, 1 SPRAY NASAL BID, #1 BOTTLE TO EACH NOSTRIL Prov:UNIQUE GARCIA PA-C 12/07/16 Phenyleph/Mineral Oil/Petrolat* (Preparation H* Oint) 28 Gm Oint.appl, 1 APPLIC IN BID, #1 TUB Prov:UNIQUE GARCIA PA-C 12/07/16 Hydrocodone/Acetaminophen ([place] 5-325 Tablet) 1 Each Tablet, 1 TAB PO Q6H Y for SEVERE PAIN LEVEL 7-10, #20 TAB Prov:JOSÉ MIGUEL NELSON NP 11/13/16 Acetaminophen* (Tylophen*) 500 Mg Capsule, 1 CAP PO Q6H Y for PAIN AND OR ELEVATED TEMP, #20 CAP Prov:JOSÉ MIGUEL NELSON NP 11/13/16 Dextromethorphan Hb-Promethazine Hcl* (Promethazine DM* Syrup) 473 Ml Syrup, 10 ML PO Q6 Y for COUGH, #120 ML Prov:FAUSTINO RUBY MD 09/15/16 Ibuprofen* (Motrin*) 600 Mg Tab, 600 MG PO Q6H Y for PAIN AND OR ELEVATED TEMP, #20 TAB Prov:FAUSTINO RUBY MD 09/15/16 Reported Medications Pramipexole* (Pramipexole*) 0.25 Mg Tablet, 0.25 MG PO HS, TAB 09/15/16 Aspirin* (Aspirin* EC) 81 Mg Tablet.dr, 81 MG PO DAILY, TAB 09/15/16 Omeprazole* (Omeprazole*) 20 Mg Capsule.dr, 20 MG PO DAILY, #30 CAP 09/15/16 Atorvastatin* (Atorvastatin*) 40 Mg Tablet, 40 MG PO QHS, #30 TAB 09/15/16 Metformin Hcl* (Metformin Hcl*) 1,000 Mg Tablet, 1000 MG PO WITH BREAKFAST DINNE , #60 TAB 09/15/16 Allergies Allergies: Coded Allergies: No Known Allergy (Verified , 01/30/17) PMhx/Soc History of Surgery: No Anesthesia Reaction: No Hx Neurological Disorder: No Hx Respiratory Disorders: Yes (ASTHMA;) Hx Cardiac Disorders: Yes (HTN, HYPERLIPIDEMIA) Hx Psychiatric Problems: No Hx Miscellaneous Medical Probl: Yes (DM, GERD) Hx Alcohol Use: No Hx Substance Use: No Hx Tobacco Use: No FmHx Family History: diabetes Physical Exam Vitals Vital Signs Date Time Temp Pulse Resp B/P Pulse Ox O2 Delivery O2 Flow Rate FiO2 01/30/17 11:27 97.7 76 18 139/69 95 Physical Exam INITIAL VITAL SIGNS: Reviewed by me GENERAL: Awake, alert and oriented x 4, well appearing, nontoxic, speaking in full sentences. No acute distress HEAD: Atraumatic NECK: Supple. No masses. Full range of motion. No meningismus. No midline tenderness. NOSE: Normal nose. THROAT: No tonilar erythema or edema. No exudates. Uvula midline. No kissing tonsils. RESPIRATORY: Clear to auscultation bilaterally. Symmetric chest wall rise. No wheezing or rales. No accessory muscle use. CV: Regular rate and rhythm. No murmurs, rubs, or gallops. ABDOMEN: Soft, non-distended. Nontender. Negative [place]. Negative McBurneys point tenderness. No CVA tenderness bilaterally. No guarding. No rebound. EXTREMITIES: No clubbing or cyanosis. No edema. Moving all extremities normally. BACK: No midline tenderness to palpation. No step-offs. NEUROLOGIC: Normal mental status and speech. Face is symmetric. Moves all extremities equally. Motor and sensory distally intact. Normal coordination. Ambulates with a strong steady gait. Procedures/MDM 76-year-old male presents with a week of cough and congestion. Patients is alert, oriented, well appearing, and in no distress with normal vital signs. He has no chest pain or shortness of breath. There is no fever, tachycardia, or tachypnea. The differential diagnosis includes but is not limited to asthma , COPD, pneumonia, pulmonary embolus, AAA, aortic dissection, pleural effusion, congestive heart failure, and others. Chest x-ray was ordered. X-ray shows no evidence of a pneumonia. Patient was discharged with azithromycin. Patient counseled regarding my diagnostic impression and care plan. Prior to discharge all questions answered. Pt agrees with treatment plan and understands strict return precautions. Pt is instructed to follow up with primary care provider within 24-48 hours. Precautionary instructions provided including instructions to return to the ER if not improving or for any worsening or changing symptoms or concerns. Departure Diagnosis: Primary Impression: Bronchitis Condition: Stable LU CHILDS PA-C Jan 30, 2017 11:41
--- NOTE | 2017-01-30 13:20 | RADRPT ---
PROCEDURE: XR Chest. CLINICAL INDICATION: cough TECHNIQUE: Single frontal view of the chest was obtained. COMPARISON: 12/07/2016 FINDINGS: The cardiomediastinal silhouette is normal size. Pulmonary vasculature is within normal limits. Th ere is mild atelectasis at the lung bases.. There is mild to moderate aortic calcification. No signs of pleural fluid or pneumothorax are seen. The osseous structures and soft tissues are unre markable. IMPRESSION: Mild bibasilar atelectasis. Mild to moderate aortic calcification. RPTAT: QQ .Angel Duenas MD, MD Date Time Electronically viewed and signed by .Angel Duenas MD, on 01/30/2017 13:19 .T/
[2017-01-30] MEDS ORDERED: AZIT250T94 PO (13:23)
== END 2017-01-30 13:38 | disposition home or self-care (01) ==
LOC: FTE 11:25
DX: J20.9 Acute bronchitis, unspecified (principal); I10 Essential (primary) hypertension; J45.909 Unspecified asthma, uncomplicated; E11.9 Type 2 diabetes mellitus without complications; Z79.82 Long term (current) use of aspirin; Z79.84 Long term (current) use of oral hypoglycemic drugs
CPT/HCPCS: 71010

== ENCOUNTER 2017-03-20 11:07 | Emergency (ER) | END 2017-03-20 17:27 | disposition home or self-care (01) | DX: K57.30 Diverticulosis of large intestine without perforation or abscess without bleeding (principal); J45.909 Unspecified asthma, uncomplicated; I10 Essential (primary) hypertension; E11.9 Type 2 diabetes mellitus without complications; Z79.82 Long term (current) use of aspirin; Z79.84 Long term (current) use of oral hypoglycemic drugs | CPT/HCPCS: 74177; 80053; 82150; 83690; 84484; 85025; 85610; 85730; 93005; 96374; 96375; 99285; J1885; J2270; J2405; J7030; Q9967 ==

== ENCOUNTER 2017-08-10 10:07 | Emergency (ER) | END 2017-08-10 21:21 | disposition home or self-care (01) ==

== ENCOUNTER 2017-08-28 15:17 | Emergency (ER) | END 2017-08-28 18:15 | disposition home or self-care (01) ==

== ENCOUNTER 2018-01-25 08:24 | Emergency (ER) | END 2018-01-25 09:10 | disposition home or self-care (01) ==

== ENCOUNTER 2018-02-23 15:25 | Emergency (ER) | END 2018-02-23 19:47 | disposition home or self-care (01) ==

== ENCOUNTER 2018-10-25 10:30 | Emergency (ER) | payer MEDICARE, OTHER ==
[~2018-10-25] VITALS: Ht 177.8 cm; Wt 83.9 kg
[~2018-10-25 10:30] MED LIST changes: -ACET500C5 PO; -ASPI-664 PO; +ASPI-817 PO; +BENA5TAB33 PO; +CANA100T PO; -D-ME473S2 PO; -FLUT9.9S NASAL; -HYDR-906 PO; -IBUP-1542 PO; -LORA-186 PO; +LYRI100 PO; -METF1000 PO; -PHEN28OI6 PR; -PRAM0.25 PO
[2018-10-25 10:38] VITALS: BP 126/70; PULSE 61; RESP 18; Ht 177.8 cm; Wt 83.9 kg
[2018-10-25] MEDS ORDERED: AZIT250T PO (12:15)
[2018-10-25] MEDS ORDERED: BENZ-6 PO (12:15)
[2018-10-25] MEDS ORDERED: D-ME473S2 PO (12:15)
--- NOTE | 2018-10-25 12:28 | ERD ---
ER Documentation Chief Complaint Chief Complaint cough & congestion x2 wks HPI 78-year-old male presenting with cough and congestion x2 weeks. Patient says he has a history of pneumonia. His back and feels the symptoms are similar. Denies any fever and has not taken any medication for patient only takes chronic medication for blood pressure and cholesterol. Patient denies any shortness of breath. Denies other medical problems. NKDA. Surgical history denies. Social history denies ROS All systems reviewed and are negative except as per history of present illness. Medications Home Meds Active Scripts Dextromethorphan Hb-Promethazine Hcl* (Promethazine DM* Syrup) 473 Ml Syrup, 5 ML PO Q6 PRN for COUGH, #100 ML Prov:CORY ZHOU PA-C 10/25/18 Benzonatate* (Tessalon Perle*) 100 Mg Capsule, 100 MG PO Q8H PRN for COUGH, #30 CAP Prov:CORY ZHOU PA-C 10/25/18 Azithromycin* (Zithromax*) 250 Mg Tablet, 250 MG PO .CANDI DIRECTED, #6 TAB TAKE 500 MG (2 TABS) THE FIRST DAY THEN 250 MG (1 TAB) DAYS 2-5 Prov:CORY ZHOU PA-C 10/25/18 Reported Medications Benazepril Hcl* (Benazepril Hcl*) 5 Mg Tablet, 5 MG PO DAILY, #30 TAB 06/20/18 Atorvastatin* (Atorvastatin*) 40 Mg Tablet, 40 MG PO QHS, #30 TAB 06/20/18 Omeprazole* (Omeprazole*) 20 Mg Capsule.dr, 20 MG PO DAILY, #30 CAP 06/20/18 Pregabalin* (Lyrica*) 100 Mg Capsule, 100 MG PO DAILY, CAP 06/20/18 Aspirin* (Aspirin* EC) 81 Mg Tablet.dr, 81 MG PO DAILY, TAB 06/20/18 Canagliflozin (Invokana) 100 Mg Tablet, 100 MG PO DAILY, TAB 06/20/18 Allergies Allergies: Coded Allergies: No Known Allergy (Verified , 06/20/18) PMhx/Soc History of Surgery: No Anesthesia Reaction: No Hx Neurological Disorder: No Hx Respiratory Disorders: Yes (ASTHMA;) Hx Cardiac Disorders: Yes (HTN, HYPERLIPIDEMIA) Hx Psychiatric Problems: No Hx Miscellaneous Medical Probl: Yes (DM, GERD) Hx Alcohol Use: No Hx Substance Use: No Hx Tobacco Use: No FmHx Family History: No diabetes, No coronary disease, No other Physical Exam Vitals Vital Signs Date Temp Pulse Resp B/P (MAP) Pulse Ox O2 O2 Flow FiO2 Time Delivery Rate 10/25/18 97.6 61 18 126/70 96 10:38 (88) Physical Exam GENERAL: The patient is well-appearing, well-nourished, in no acute distress HEENT: Atraumatic. Conjunctivae are pink. Pupils equal, round, and reactive to light. There is no scleral icterus. Tympanic membranes clear bilaterally. Oropharynx clear. NECK: C-spine is soft and supple. There is no meningismus. There is no cervical lymphadenopathy. CHEST: Clear to auscultation bilaterally. There are no rales, wheezes or rhonchi. HEART: Regular rate and rhythm. No murmurs, clicks, rubs or gallops. Procedures/MDM DIAGNOSTIC IMAGING REPORT Patient: EDDIE ESPOSITO : 1940 Age: 78 Sex: M MR #: [id number] DOS: 10/25/18 1112 Ordering MD: SHANNAN ZHOU PA-C Location: [facility] Room/Bed: PROCEDURE: XR chest. CLINICAL INDICATION: Cough TECHNIQUE: A single portable view of the chest was obtained. COMPARISON: 06/20/2018 FINDINGS: Mild left basilar atelectasis is present. The lungs are otherwise clear. There is no pleural effusion or pneumothorax. The cardiac and mediastinal contours are within normal limits. The aorta is atherosclerotic. IMPRESSION: 1. Mild left basilar atelectasis, otherwise, clear lungs. ER Course: 78-year-old male presenting with cough. Patient's breath sounds are within normal limits and vitals are stable. Given patient's age and history of pneumonia in the past I will treat with prophylactic antibiotics and supportive cough medication. Patient is discharged with strict ER precautions and told to follow-up with primary care within 1 to 2 days for close evaluation. Patient is told symptoms change or worsen to return immediately to the ER. All questions answered at discharge Departure Diagnosis: Primary Impression: Cough Condition: Stable Patient Instructions: Cough, Chronic, Uncertain Cause, (Adult) Referrals: FRANK WORTHY MD (PCP) Additional Instructions: FOLLOW UP WITH YOUR PRIMARY CARE PHYSICIAN TOMORROW.Return to this facility if you are not improving as expected. CORY ZHOU PA-C Oct 25, 2018 12:28
== END 2018-10-25 12:30 | disposition home or self-care (01) ==
LOC: FTE 10:30
DX: J45.909 Unspecified asthma, uncomplicated (principal); I10 Essential (primary) hypertension; E11.9 Type 2 diabetes mellitus without complications; Z79.82 Long term (current) use of aspirin
CPT/HCPCS: 71045

== ENCOUNTER 2018-12-29 08:22 | Emergency (ER) | payer MEDICARE, OTHER ==
[~2018-12-29] VITALS: Ht 170.2 cm; Wt 85.0 kg
[~2018-12-29 08:22] MED LIST changes: +AZIT250T PO; +BENZ-6 PO; +CYCL10TA7 PO; +D-ME473S2 PO; +HYDR-4011 PO; +NAPR-985 PO
[2018-12-29 08:39] VITALS: BP 139/66; PULSE 52; RESP 17; Ht 170.2 cm; Wt 85.0 kg
== END 2018-12-29 10:12 | disposition home or self-care (01) ==
LOC: FTE 08:22
DX: M54.9 Dorsalgia, unspecified (principal); E11.9 Type 2 diabetes mellitus without complications; J45.909 Unspecified asthma, uncomplicated; I10 Essential (primary) hypertension; Z79.82 Long term (current) use of aspirin
CPT/HCPCS: 36415; 80053; 81003; 83690; 85025; 99283

== ENCOUNTER 2019-01-21 13:15 | Emergency (ER) | payer MEDICARE, OTHER ==
[~2019-01-21] VITALS: Ht 172.7 cm; Wt 84.5 kg
[~2019-01-21 13:15] MED LIST changes: +ACET325T33 PO; +ALBU18HF INHALATION; +CODE5LIQ2 PO; -OMEP20CA16 PO; +OMEP20CA17 PO; +PRED20TA PO; +RANI-535 PO
[2019-01-21 13:57] VITALS: BP 103/57; PULSE 65; RESP 18; Ht 172.7 cm; Wt 84.5 kg
== END 2019-01-21 15:14 | disposition home or self-care (01) ==
LOC: FTE 13:15
DX: M54.9 Dorsalgia, unspecified (principal); I10 Essential (primary) hypertension; J45.909 Unspecified asthma, uncomplicated; E11.9 Type 2 diabetes mellitus without complications; Z79.82 Long term (current) use of aspirin; Z79.84 Long term (current) use of oral hypoglycemic drugs
CPT/HCPCS: 99283